=== PATIENT | male | born 1995 | race Caucasian/White ===

== ENCOUNTER 2019-04-21 23:42 | Emergency (ER) | payer BC, SELFPAY ==
[2019-04-21 23:43] VITALS: BP 138/81; PULSE 70; RESP 15; TEMP 37.1; O2SAT 98; BMI 25.4
[2019-04-22 01:50] VITALS: PULSE 69; RESP 15; O2SAT 98
--- NOTE | 2019-04-22 01:51 | ED.DCSUM_ITS ---
- ER Visit Summary Date of Service: 04/22/19 Chief Complaint: Left hand subjective weakness History of Present Illness: The patient is a 23 M no seen in past medical or surgical history. He said since about 4 PM he is thought he had subjective weakness in his left hand. Said it seems to be resolving back to normal. He denies any headache or head trauma. He is on no blood thinners. He said months ago he had some type of symptoms on the left side of his body but that resolved after an hour and he never had it worked up. Physical Examination: Young male no acute distress vital signs stable afebrile. H EENT exam normal. Pupils are unreactive laser motions are intact. No facial droop. Normal speech. Neck nontender no lymphadenopathy. Lungs clear to auscultation bilaterally. Heart regular rhythm no murmur rate about 70. Chest wall nontender. Abdomen soft nontender. Patient is moving all 4 extremities. Neurovascular intact. No edema. Neurologically is awake and alert. No focal motor or sensory deficits. No facial droop. Extra motions are intact. Normal speech. 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 Fingertip to nose are within normal limits. He can open and close his hands rapidly without any difficulty. Dorsi plantarflexion intact bilaterally. Normal strength and sensation both lower extremities. [id number] within normal limits bilaterally. Patient got out of bed stood up walk to the door had no difficulty no ataxia. No problem wi th his balance. Romberg test negative. NIH score is 0. Test Results: None Emergency Department Course and Treatment: Patient's exam is completely normal he is completely normal neurologic exam. I discussed with both he and his significant other about a CAT scan his brain they are deferring at this time. Clinically I told him I thought it would be negative with a completely normal exam. Treatment Plan: Outpatient follow-up with Dr. Ellis. Disposition: discharge Impression: Subjective left hand weakness resolved This note was generated with [employer] dictation software. It may contain incorrect words, spelling, and punctuation that were not noted in review of the chart prior to signing ED Disposition - Plan for ED Patient: Referrals: Care Physician,No Primary [Primary Care Provider] -
--- NOTE | 2019-04-22 01:53 | ED.DEP ---
ED Disposition - Plan for ED Patient: Disposition: Home or Assisted Living Instructions: WEAKNESS, Unk Cause Referrals: Tyson Ellis MD [NON-STAFF] - As soon as possible Additional Instructions: Return if any further symptoms such as weakness, loss of coordination, trouble walking or severe headache. Follow-up with Dr. Ellis.
== END 2019-04-22 01:58 | disposition home or self-care (01) ==
PROVIDERS: Emergency Provider Emergency Medicine
DX: R29.898 Other symptoms and signs involving the musculoskeletal system (principal)
CPT/HCPCS: 99283

== ENCOUNTER 2019-12-07 21:34 | Emergency (ER) | payer BC, SELFPAY ==
[2019-12-07 21:34] VITALS: BP 139/78; PULSE 100; RESP 28; TEMP 36.7; O2SAT 95; BMI 23.5
[2019-12-07 21:38] VITALS: BP 139/78; PULSE 100; RESP 28; TEMP 36.7; O2SAT 95
--- NOTE | 2019-12-07 22:03 | ED.DCSUM_ITS ---
- ER Visit Summary Date of Service: 12/07/19 Chief Complaint: Cough, fever, headache History of Present Illness: The patient is a 24 M with a cough, fever, headache, body aches this past week. Loss of taste and smell. He tested negative for COVID-19 earlier in the week. He has continued symptoms, so he came in this evening. He has no past medical history. Physical Examination: Triage heart rate is 100 and respiratory rate is 28. Otherwise vitals are normal. On my exam, his heart is regular rate and rhythm. Lungs are clear. Breathing comfortably, slowly, clear to auscultation. Extremities unremarkable. Skin unremarkable. Alert and oriented. Test Results: COVID-19 test is pending Emergency Department Course and Treatment: Patient has typical symptoms for COVID-19 infection. There is a large outbreak. I suspect he had a false negative test. I do not have any suspicion for other significant process. There is no indication for testing or other diagnostics. Patient will act as though he is positive. Maintain precautions and social distancing. Treatment Plan: As above Disposition: Discharge Impression: COVID-19 suspected This note was generated with [employer] software. It may contain incorrect words, spelling, and punctuation that were not noted in review of the chart prior to signing ED Disposition - Plan for ED Patient: Referrals: Care Physician,No Primary [Primary Care Provider] -
--- NOTE | 2019-12-07 22:05 | ED.DEP ---
ED Disposition - Plan for ED Patient: Instructions: ED Upper Resp Infec No Abx Tx Referrals: Dominga Lassiter [NON-STAFF] -
== END 2019-12-07 22:14 | disposition home or self-care (01) ==
PROVIDERS: Emergency Provider Emergency Medicine
DX: U07.1 COVID-19 (principal); R05 Cough; R50.9 Fever, unspecified; R51.9 Headache, unspecified; R43.8 Other disturbances of smell and taste; J02.9 Acute pharyngitis, unspecified; R06.00 Dyspnea, unspecified; M79.10 Myalgia, unspecified site
CPT/HCPCS: 87635; 99282; U0003